=== PATIENT | female | born 1995 ===

== ENCOUNTER 2021-01-30 19:57 | Emergency (ER) | payer MEDICAID ==
[2021-01-30] MEDS ORDERED: Ondansetron 4 MG Tab.DIS PO ONE (19:58)
[2021-01-30] MEDS ORDERED: GI Cocktail Oral Solution 30 ML PO ONE (22:44)
[2021-01-30 23:03] LABS: ANION GAP 14.8 mEq/L (7-13); CHLORIDE,CL 103 mmol/L (98-107); SODIUM,NA 139 mmol/L (136-145)
--- NOTE | 2021-01-30 23:03 | EDM.PDOC ---
ED HPI GENERAL MEDICAL PROBLEM - General Chief Complaint: Gastrointestinal Problem Stated Complaint: BURNING SENSATION IN STOMACH Time Seen by Provider: 01/30/21 22:30 Source of Information: Reports: Patient History Limitations: Reports: No Limitations - History of Present Illness INITIAL COMMENTS - FREE TEXT/NARRATIVE: ED with c/o burning sensation to stomach since this am, worse with food. Tried tums no relief. No diarrhea. No fever. Minimal caffeine, Denies ETOH use. - Related Data Allergies Allergy/AdvReac Type Severity Reaction Status Date / Time naproxen Allergy Itching Verified 01/30/21 20:11 Home Meds: Home Meds Ferrous Sulfate [Iron] 325 mg PO DAILY 01/30/21 [History] Mv-Mn/Iron/Folic Acid/Herb 190 [Vitamin D3 Complete Caplet] 1 tab PO DAILY 01/30/21 [History] lisinopriL [Lisinopril] 20 mg PO DAILY 01/30/21 [History] metFORMIN [Glucophage XR] 500 mg PO DAILY 01/30/21 [History] Past Medical History Cardiovascular History: Reports: Hypertension ENG[employer]ELOPMENT History: Reports: Endocrine/Metabolic History: Reports: Diabetes, Type II Social & Family History - Tobacco Use Tobacco Use Status *Q: Current Every Day Tobacco User Years of Tobacco use: 8 Packs/Tins Daily: 0.5 - Recreational Drug Use Recreational Drug Use: No ED ROS GENERAL - Review of Systems Review Of Systems: Comprehensive ROS is negative, except as noted in HPI. ED EXAM, GI/ABD - Physical Exam Exam: See Below Exam Limited By: No Limitations General Appearance: Alert, Mild Distress Ears: Normal External Exam, Hearing Grossly Normal Nose: Normal Inspection Throat/Mouth: Normal Inspection Head: Atraumatic, Normocephalic Respiratory/Chest: No Respiratory Distress, Lungs Clear, Normal Breath Sounds Cardiovascular: Normal Peripheral Pulses, Regular Rate, Rhythm GI/Abdominal Exam: Normal Bowel Sounds, Soft, Tender (epigastric) Extremities: Normal Inspection Neurological: Alert, Oriented, Normal Cognition Skin Exam: Warm, Dry, Intact, Normal Color, No Rash Course - Vital Signs Last Recorded V/S: Last Vital Signs Temp 98.4 F 01/30/21 20:11 Pulse 95 01/30/21 20:11 Resp 18 01/30/21 20:11 BP 140/88 01/30/21 20:11 Pulse Ox 95 01/30/21 20:11 - Orders/Labs/Meds Labs: Laboratory Tests 01/30/21 01/30/21 01/30/21 Range/Units 22:30 22:30 22:30 WBC 11.9 H (5.0-10.0) 10^3/uL RBC 5.08 (4.2-5.4) 10^6/uL Hgb 13.7 (12.0-16.0) g/dL Hct 41.4 (37.0-47.0) % MCV 81.5 (80-100) fL MCH 27.0 (27.0-34.0) pg MCHC 33.1 (33.0-35.0) g/dL Plt Count 283 (150-450) 10^3/uL Neut % (Auto) 80.3 H (42.2-75.2) % Lymph % (Auto) 12.7 L (20.5-50.1) % [place] % (Auto) 5.8 (2-8) % Eos % (Auto) 0.9 L (1.0-3.0) % Baso % (Auto) 0.3 (0.0-1.0) % Sodium 139 (136-145) mmol/L Potassium 3.8 (3.5-5.1) mmol/L Chloride 103 (98-107) mmol/L Carbon Dioxide 25 (21-32) mmol/L Anion Gap 14.8 H (7-13) mEq/L BUN 12 (7-18) mg/dL Creatinine 0.75 (0.55-1.02) mg/dL Est Cr Clr Drug Dosing 97.29 mL/min Estimated GFR (MDRD) > 60 BUN/Creatinine Ratio 16.0 (No establ ref range) Glucose 122 H (70-99) mg/dL Lactic Acid 1.7 (0.4-2.0) mmol/L Calcium 8.5 (8.5-10.1) mg/dL Total Bilirubin 0.6 (0.2-1.0) mg/dL AST 22 (15-37) U/L ALT 53 (14-59) U/L Alkaline Phosphatase 64 (46-116) U/L Total Protein 7.6 (6.4-8.2) g/dL Albumin 3.7 (3.4-5.0) g/dL Globulin 3.9 Albumin/Globulin Ratio 0.9 Amylase 37 (25-115) U/L Lipase 114 (73-393) U/L HCG, Qual Negative Urine Color (YELLOW) Urine Appearance (CLEAR) Urine pH (5.0-9.0) Ur Specific Nelson (1.005-1.030) Urine Protein (NEGATIVE) Urine Glucose (UA) (NEGATIVE) Urine Ketones (NEGATIVE) Urine Occult Blood (NEGATIVE) Urine Nitrite (NEGATIVE) Urine Bilirubin (NEGATIVE) Urine Urobilinogen (0.2-1.0) mg/dL Ur Leukocyte Esterase (NEGATIVE) 01/30/21 Range/Units 23:01 WBC (5.0-10.0) 10^3/uL RBC (4.2-5.4) 10^6/uL Hgb (12.0-16.0) g/dL Hct (37.0-47.0) % MCV (80-100) fL MCH (27.0-34.0) pg MCHC (33.0-35.0) g/dL Plt Count (150-450) 10^3/uL Neut % (Auto) (42.2-75.2) % Lymph % (Auto) (20.5-50.1) % [place] % (Auto) (2-8) % Eos % (Auto) (1.0-3.0) % Baso % (Auto) (0.0-1.0) % Sodium (136-145) mmol/L Potassium (3.5-5.1) mmol/L Chloride (98-107) mmol/L Carbon Dioxide (21-32) mmol/L Anion Gap (7-13) mEq/L BUN (7-18) mg/dL Creatinine (0.55-1.02) mg/dL Est Cr Clr Drug Dosing mL/min Estimated GFR (MDRD) BUN/Creatinine Ratio (No establ ref range) Glucose (70-99) mg/dL Lactic Acid (0.4-2.0) mmol/L Calcium (8.5-10.1) mg/dL Total Bilirubin (0.2-1.0) mg/dL AST (15-37) U/L ALT (14-59) U/L Alkaline Phosphatase (46-116) U/L Total Protein (6.4-8.2) g/dL Albumin (3.4-5.0) g/dL Globulin Albumin/Globulin Ratio Amylase (25-115) U/L Lipase (73-393) U/L HCG, Qual Urine Color Dark yellow (YELLOW) Urine Appearance Clear (CLEAR) Urine pH 5.5 (5.0-9.0) Ur Specific Nelson 1.025 (1.005-1.030) Urine Protein Negative (NEGATIVE) Urine Glucose (UA) Negative (NEGATIVE) Urine Ketones Negative (NEGATIVE) Urine Occult Blood Negative (NEGATIVE) Urine Nitrite Negative (NEGATIVE) Urine Bilirubin Negative (NEGATIVE) Urine Urobilinogen 0.2 (0.2-1.0) mg/dL Ur Leukocyte Esterase Negative (NEGATIVE) Meds: Medications Discontinued Medications Generic Name Dose Route Start Last Admin Trade Name Hugoq PRN Reason Stop Dose Admin Al Hydroxide/Mg Hydroxide 30 ml 01/30/21 22:44 01/30/21 22:55 Gi Cocktail Oral Solution 30 Ml PO 01/30/21 22:45 30 ml ONETIME ONE Administration Ondansetron HCl Confirm 01/30/21 23:19 Ondansetron 4 Mg Tab.Dis Administered 01/30/21 23:20 Dose 12 mg .ROUTE .STK-MED ONE Ondansetron HCl 4 mg 01/30/21 19:58 Ondansetron 4 Mg Tab.Dis PO 01/30/21 19:59 .STK-MED ONE Departure - Departure Time of Disposition: 23:16 Disposition: Home, Self-Care 01 Condition: Good Clinical Impression: Epigastric abdominal pain - Discharge Information *PRESCRIPTION DRUG MONITORING PROGRAM REVIEWED*: No *COPY OF PRESCRIPTION DRUG MONITORING REPORT IN PATIENT ROSALIA: No Instructions: Heartburn Forms: ED Department Discharge Additional Instructions: bland low fat diet avoid spicy food, alcohol, limit , decrease smoking omeprazole 20mg daily for 2 weeks zofran 4mg ODT one every 4 hours as needed for nausea/ vomiting follow up in clinic if not improving Sepsis Event Note (ED) - Evaluation Sepsis Screening Result: No Definite Risk
[2021-01-30] MEDS ORDERED: Ondansetron 4 MG Tab.DIS ONE (23:19)
== END 2021-01-30 23:27 | disposition home or self-care (01) ==
LOC: DL.ED 19:57
DX: R10.13 Epigastric pain (principal); I10 Essential (primary) hypertension; E11.9 Type 2 diabetes mellitus without complications; Z72.0 Tobacco use; Z79.84 Long term (current) use of oral hypoglycemic drugs; Z79.899 Other long term (current) drug therapy
CPT/HCPCS: 36415; 80053; 81003; 82150; 83605; 83690; 84703; 85025; 99283; 99284; A9270-GY